=== PATIENT | male | born 1985 | race Caucasian/White ===

== ENCOUNTER 2018-08-11 17:49 | Emergency (ER) | payer MEDICAID | END 2018-08-11 20:56 | disposition home or self-care (01) | LOC: FTE 17:49 | DX: N48.1 Balanitis (principal); F17.210 Nicotine dependence, cigarettes, uncomplicated | CPT/HCPCS: 99283; Z7502 ==

== ENCOUNTER 2018-09-27 15:23 | Emergency (ER) | payer MEDICAID | END 2018-09-27 17:00 | disposition home or self-care (01) | LOC: FTE 15:23 | DX: H60.91 Unspecified otitis externa, right ear (principal); L08.9 Local infection of the skin and subcutaneous tissue, unspecified; I10 Essential (primary) hypertension; F17.210 Nicotine dependence, cigarettes, uncomplicated | CPT/HCPCS: 99283; Z7502 ==